=== PATIENT | male | born 1985 | race Caucasian/White ===

== ENCOUNTER 2024-02-21 15:13 | Outpatient (CLI) | payer BC, SELFPAY ==
--- NOTE | ~2024-02-21 | XR_ITS ---
XR knee RT min 4V Ordering provider: Allyssa Melvin PA-C History: . pain and swelling on patella after crawling on floor . Comparison: None. FINDINGS: BONES: No acute fracture or dislocation. JOINT SPACES: Normal. SOFT TISSUES: Normal. IMPRESSION: No acute osseous abnormality right knee. Reviewed, dictated and finalized at location A.
== END 2024-02-21 15:14 ==
PROVIDERS: PCP Physician Assistant; Visit Provider Physician Assistant
DX: M25.561 Pain in right knee (principal)
CPT/HCPCS: 73564